=== PATIENT | female | born 1995 ===

== ENCOUNTER 2019-02-19 17:04 | Emergency (ER) | payer BC ==
--- OUTSIDE RECORDS SUMMARY | 2019-02-19 17:12 | XMS REPORT | Continuity of Care Document ---
:1995 External Reference #:[id number] Author Name Alona Clemente O.D. Address [address] [place] [address] Problems Active Problems Provider Date Internal hordeolum Alona Clemente O.D. Onset: 02/19/2019 Social History Type Date Description Comments Sex Unknown ETOH Use Currently consumes alcohol Tobacco Use Start: Unknown Patient has never smoked Recreational Drug Use Denies Drug Use Smoking Status Reviewed: 02/19/19 Patient has never smoked Allergies, Adverse Reactions, Alerts Description No Known Drug Allergies Medications Active Medications SIG Qnty Indications Ordering Provider Date Erythromycin apply thin strip 1Tubes H00.021 Alona Clemente, 02/19/2019 5mg/GM to all four O.D. Ointment eyelid margins every night at bedtime x 1 weeks 1.5/30 Unknown 1.5-30mg-mcg Tablets Immunizations Description No Information Available Vital Signs Description No Information Available Results Description No Information Available Procedures Description No Information Available Medical Devices Description No Information Available Encounters Description No Information Available Assessments Date Code Description Provider 02/19/2019 H00.021 Hordeolum internum right upper eyelid Alona Clemente O.D. 02/19/2019 H00.022 Hordeolum internum right lower eyelid Alona Clemente O.D. Plan of Treatment 02/19/2019 - Alona Clemente O.D.H00.021 Hordeolum internum right upper eyelidNew Medication:Erythromycin 5 mg/GM - apply thin strip to all four eyelid margins every night at bedtime x 1 weeksComments:Dr. 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 This is when the Meibomian Glands do not function correctly and periodically get blocked up. This is a chronic condition that requires at home treatment. You can prevent a flare up by using a hot compress for 10-15 minutes at a time once or twice per day. There are a few ways you can do this:1 ) You can wet down a washcloth with hot water. You may have to re-wet the washcloth or twice during the 15 minute period. 2) You can put uncooked white rice into a clean pair of socks, and without wetting the sock or the rice, heat it up in the microwave for30 seconds. The white rice will release a moist heat and will remain warm for roughly 15 minutes. It is recommended that you replace the rice every month and clean the socks.After using the hot compress, massage along the lash line to help the oils in the glands move freely, proving an oil layer foryour tear film, to keep your tears from evaporating. It is also recommended that you use artificaltears throughout the day, even when your eyes do not feel dry. We recommend that you use them 3-4 times a day to prevent your ocular surface from becoming irritated. When you start to experience symptoms of dryness or irritation, it is often too late for the tears to help until you've let your eyes heal overnight.Dr. Clemente may prescribe an antibiotic ointment to help you when you have a Meibomitisflare up , but you can also use Refresh PM ointment each night before bed to help keep your ocular surface comfortable. If your eye lashes have debris or crusting on them, there are a couple of things you can do to help with this:1) You can use baby shampoo in the shower in the morning to gently massage your eye lashes and clean them.2) You can use a medicated wipe, called OcuSoft, to help clean the eye lashes. OcuSoft pads look like a tiny wipe, and you can use one OcuSoft pad for both eyes by using each side for each eye.If you have any questions about your condition and the treatment, feel freeto call our office at [phone].Follow up: [id number] Hordeolum internum right lower eyelidComments: Smoking can increase the risk of developing or worsening any eye related disease , as well as affect your overall health. If you are a smoker, we strongly recommend that you quit.If you are not a smoker, we strongly recommend that you do not start. Functional Status Description No Information Available Mental Status Description No Information Available Referrals Description No Information Available
--- NOTE | 2019-02-19 17:26 | UC ---
Skin Complaint HPI - HPI Summary HPI Summary: 23 yo female presents with chest wall lesion. She tells me that once a year or so she will have a "cyst" on the right anterior chest wall that will become red and swollen. She will pop this and express green purulent matter and the cyst will resolve. About 4-5 days ago she noticed this cyst "flare" and she popped it and has been dressing the area with square bandaids. Over the two days she has developed a rash to the area in the shape of a bandaid and the cyst site has become red again. Mildly painful. Denies fever or chills. No known hx of MRSA - History of Current Complaint Chief Complaint: UCSkin Time Seen by Provider: 02/19/19 17:26 Stated Complaint: SOFT TISSUE COMPLAINT Hx Obtained From: Patient Hx Last Menstrual Period: today Onset/Duration: Sudden Onset Onset Severity: Mild Current Severity: Mild Pain Intensity: 2 - Allergy/Home Medications Allergies/Adverse Reactions: Allergies Allergy/AdvReac Type Severity Reaction Status Date / Time No Known Allergies Allergy Verified 02/19/19 17:15 Home Medications: Home Medications Bcp 02/19/19 [History] PMH/Surg Hx/FS Hx/Imm Hx - Additional Past Medical History Additional PMH: None - Surgical History Surgical History: Yes Surgery Procedure, Year, and Place: ear tubes - Family History Known Family History: Positive: None - Social History Lives: With Family Alcohol Use: Occasionally Substance Use Type: None Smoking Status (MU): Never Smoked Tobacco Review of Systems All Other Systems Reviewed And Are Negative: No Constitutional: Positive: Negative Skin: Positive: Other - Lesion chest wall Respiratory: Positive: Negative Cardiovascular: Positive: Negative Neurovascular: Positive: Negative Neurological: Positive: Negative Psychological: Positive: Negative Physical Exam - Summary Physical Exam Summary: GENERAL: NAD. WDWN. No pain distress. SKIN: RIGHT anterior chest wall with 7mm diameter area of slightly raised erythema and central scab. Mildly TTP. No drainage. Square band-aid shaped area of dermatitis surrounding the lesion. No induration, fluctuance, or streaking. NECK: Supple. Nontender. No lymphadenopathy. CHEST: No accessory muscle use. Breathing comfortably and in no distress. CV: Pulses intact. Cap refill <2seconds NEURO: Alert. PSYCH: Age appropriate behavior. Triage Information Reviewed: Yes Vital Signs: Initial Vital Signs Temp 99.8 F 02/19/19 17:15 Pulse 65 02/19/19 17:15 Resp 18 02/19/19 17:15 BP 138/86 02/19/19 17:15 Pulse Ox 100 02/19/19 17:15 Vital Signs Reviewed: Yes Course/Dx - Course Course Of Treatment: Suspect abscess that pt drained at home with dermatitis from band-aid. She states when the area doesn't go away in a day or two, she requires anbx to resolve it - therefore will rx for this today. - Diagnoses Provider Diagnosis: Abscess, Dermatitis Discharge ED - Sign-Out/Discharge Documenting (check all that apply): Patient Departure All imaging exams completed and their final reports reviewed: No Studies - Discharge Plan Condition: Stable Disposition: HOME Prescriptions: Cephalexin CAP* [Keflex CAP*] 500 mg PO TID #15 cap Patient Education Materials: Cyst (ED), Dermatitis (ED) Referrals: No Primary Care Phys,NOPCP [Primary Care Provider] - Additional Instructions: If you develop a fever, shortness of breath, chest pain, new or worsening symptoms - please call your PCP or go to the ED immediately. Your blood pressure was high at todays visit. Please see your primary provider within 4 weeks for recheck and re-evaluation. Take the antibiotic as directed - Billing Disposition and Condition Condition: STABLE Disposition: Home - Attestation Statements Provider Attestation: Per institutional requirements, I have reviewed the chart, however, I was not consulted specifically or made aware of this patient by the midlevel provider. I did not personally evaluate, interact with , or disposition this patient.
== END 2019-02-19 18:15 | disposition home or self-care (01) ==
LOC: UCEAST 17:04
DX: L02.213 Cutaneous abscess of chest wall (principal); L30.9 Dermatitis, unspecified
CPT/HCPCS: 99202; G0463